=== PATIENT | female | born 1990 | race Caucasian/White ===

== ENCOUNTER → 2020-07-01 | Outpatient (CLI) | payer OTHER ==
[2020-07-01 11:19] LABS: Basophils # (A) 0.02 X 10*3/uL (0.00-0.10); Basophils % (A) 0.3 %; Eosinophils # (A) 0.22 X 10*3/uL (0.04-0.35); Eosinophils % (A) 3.7 %; HCT 39.8 % (37.2-46.3); HGB 12.6 g/dL (12.0-15.0); Lymphocytes # (A) 1.46 X 10*3/uL (0.90-5.00); Lymphocytes % (A) 24.5 %; MCH 28.5 pg (27.0-32.0); MCHC 31.7 g/dL (32.0-37.0); Mean Platelet Volume 9.6 fL (9.5-12.2); Monocytes # (A) 0.44 X 10*3/uL (0.20-1.00); Monocytes % (A) 7.4 %; Neutrophils % (A) 63.8 %; Platelet Count 230 X 10*3/uL (140-440); RBC 4.42 X 10*6/uL (4.10-5.20); RDW 12.5 % (11.5-14.5); WBC 5.96 X 10*3/uL (4.50-10.00)
[2020-07-01 14:04] LABS: African American GFR (CKD) 100.8 (60.0-200.0); Albumin 4.3 g/dL (3.80-4.90); Albumin/Globulin Ratio 1.48 (1.60-3.17); Anion Gap 9.3 mmol/L (4.00-12.00); BUN/Creat Ratio 8.89 Ratio (12.00-20.00); Calcium 9.1 mg/dL (8.7-10.3); Carbon Dioxide 25.7 mmol/L (21.6-31.8); Globulin 2.9 g/dL (1.6-3.3); Potassium 4.2 mmol/L (3.5-5.5); Total Bilirubin 0.4 mg/dL (0.2-1.2); Total Protein 7.2 g/dL (6.2-8.2)
[2020-07-01 14:57] LABS: Ferritin 8.2 ng/mL (10.0-291.0)
== END | disposition home or self-care (01) ==
LOC: LABWHC1 07:10
PROVIDERS: ATTEND Psychiatry & Neurology Neurology
DX: R53.83 Other fatigue (principal)
CPT/HCPCS: 36415; 80053; 82607; 82728; 84207; 84425; 84443; 85025

== ENCOUNTER → 2021-07-06 | Outpatient (CLI) | payer OTHER ==
[2021-07-06 11:31] LABS: Ferritin 65.2 ng/mL (10.0-291.0)
== END | disposition home or self-care (01) ==
LOC: LABWHC1 07:41
PROVIDERS: ATTEND Psychiatry & Neurology Neurology
DX: Z51.81 Encounter for therapeutic drug level monitoring (principal); Z79.899 Other long term (current) drug therapy
CPT/HCPCS: 36415; 82607; 82728; 83090; 83921

== ENCOUNTER 2022-05-29 03:44 | Outpatient (CLI) | payer OTHER ==
[2022-05-29 07:56] VITALS: BP 124/84; PULSE 92; RESP 16; TEMP 97.7
--- NOTE | 2022-06-07 12:07 | P.MSEPDOC ---
Presenting Problems - Arrival Data Date of Arrival on Unit: 05/29/22 Time of Arrival on Unit: 03:44 Mode of Transport: Ambulatory - Complaint OB-Reason for Admission/Chief Complaint: Possible Onset of Labor Medical History - Information : 1 Para: 0 Term: 0 : 0 Abortions: Spontaneous or Elective: 0 Number of Living Children: 0 - Gestational Age Gestational Age by LACHELLE (wks/days): 39 Weeks and 2 Days - History Comment: RN called Dr. Herr and reported pt. and status, vitals, cervical exam,. negative amnisure, reactive NST, and contraction pattern. Dr. Herr would like the. patient to stay for another hour and check again for cervical change. Review of Systems - Review of Systems Constitutional: No problems Breast: No problems ENT: No problems Cardiovascular: No problems Respiratory: No problems Gastrointestinal: No problems Genitourinary: No problems Musculoskeletal: No problems Neurological: No problems Skin: No problems Vital Signs - Temperature Temperature: 97.7 F Temperature Source: Temporal Artery Scan - Pulse Pulse Oximetery Pulse Rate: 92 Pulse Assessment Method: Pulse Oximetry - Respirations Respiratory Rate: 16 Oxygen Delivery Method: Room Air O2 Sat by Pulse Oximetry: 98 - Blood Pressure Right Arm Blood Pressure: 124/84 Blood Pressure Mean: 97 Blood Pressure Source: Automatic Cuff Medical Screen Scoring - Cervical Exam Dilation (cm): 1.5 Effacement (%): 70 Station: -1 Membranes: Intact - Uterine Contractions Frequency From (mins): 7 Frequency To (mins): 9 Intensity: Mild Resting: Soft to palpation - Assessment - Baby A Baseline FHR: 132 Heart Rate - NICHD Category: Category I (Normal) NST: Reactive Physician Notification - Physician Notified Physician Notified Date: 05/29/22 Physician Notified Time: 05:11 Physician: DR. Herr New Order Received: Yes Maternal Triage Index - Non-Urgent/Priority 4 Non-Urgent Priority 4: Yes Criteria Met for Priority 4: RN called Dr. Herr and reported pt. and status, vitals, cervical exam,. negative amnisure, reactive NST, and contraction pattern. Dr. Herr would like the. patient to stay for another hour and check again for cervical change. Disposition - Disposition OB Disposition: Admit, LDRP Suite I agree with the RN Medical Screening Exam: Yes Case reviewed; plan agreed upon as documented in EMR&OBIX.: Yes Diagnosis: LOUSE-BORNE TYPHUS
== END 2022-05-29 06:15 ==
LOC: FBPOP 03:44
PROVIDERS: ATTEND Obstetrics & Gynecology
DX: O99.713 Diseases of the skin and subcutaneous tissue complicating pregnancy, third trimester (principal); A00-B99 Certain infectious and parasitic diseases; Z3A.39 39 weeks gestation of pregnancy; Z88.1 Allergy status to other antibiotic agents
CPT/HCPCS: 59025; 84112; 99213

== ENCOUNTER 2022-05-29 06:35 | Inpatient (IN) | payer OTHER ==
[2022-05-29] MEDS ORDERED: TRANEXAMIC ACID IN NACL,ISO-OS 1,000 MG in EMPTY BAG 1 BAG IV PRN (07:01)
[2022-05-29] MEDS ORDERED: OXYTOCIN 10 UNIT/ML 1 ML VIAL IM PRN (07:01)
[2022-05-29] MEDS ORDERED: TERBUTALINE 1 MG/ML VIAL SQ PRN (07:01)
[2022-05-29] MEDS ORDERED: CARBOPROST TROMETHAMINE 250 MCG/ML 1 ML AMP IM PRN (07:01)
[2022-05-29] MEDS ORDERED: miSOPROStoL 200 MCG TAB PO PRN (07:01)
[2022-05-29] MEDS ORDERED: LIDOCAINE 0.5% (PF) 5 MG/ML (50 ML SDV) SQ PRN (07:01)
[2022-05-29] MEDS ORDERED: METHYLERGONOVINE 0.2 MG/ML 1 ML AMP IM PRN (07:01)
[2022-05-29] MEDS ORDERED: OXYTOCIN 30 UNITS/500 ML NS 30 UNIT in SALINE 1 500ML.BAG IV SCH (07:15)
[2022-05-29 07:24] LABS: Basophils % (A) 0 %; Eosinophils # (A) 0.1 k/uL (0-0.7); Eosinophils % (A) 1 %; HCT 36.3 % (34.0-46.0); HGB 12.9 gm/dL (11.4-16.0); Lymphocytes # (A) 1.7 k/uL (1.0-4.8); Lymphocytes % (A) 20 %; MCH 31.7 pg (25.0-35.0); MCHC 35.6 g/dL (31.0-37.0); MCV 89.2 fL (80.0-100.0); Mean Platelet Volume 8.5; Monocytes # (A) 0.4 k/uL (0-1.0); Monocytes % (A) 4 %; Neutrophils # (A) 6.2 k/uL (1.3-7.7); Neutrophils % (A) 74 %; Platelet Count 197 k/uL (150-450); RBC 4.07 m/uL (3.80-5.40); RDW 13.8 % (11.5-15.5); WBC 8.4 k/uL (3.8-10.6)
--- NOTE | 2022-05-29 08:09 | P.HPOB ---
History of Present Illness H&P Date: 05/29/22 Chief Complaint: Strong, regular uterine contractions This is a 32-year-old female 1 para 0 EDC 06/03/2022 at 39-2/7 weeks' gestation. Patient presents from home with strong uterine contractions every 6 minutes, taking her breath away. She denies fluid leakage or vaginal bleeding. She was monitored in the triage area for 2 hours and made cervical change, therefore admitted. Fetus is been active throughout the . Current medications vitamins daily, Zyrtec as needed, omeprazole as needed, baby aspirin daily. Past surgical history tonsillectomy, endoscopy. Past medical history significant for asthma, hiatal hernia, migraine headaches. Social history patient is , her is present and involved. She works for [employer]. She denies tobacco alcohol or drug use. Family history significant for migraine headaches, depression, epilepsy, hypercholesterolemia, ventricular tachycardia, anxiety. history significant for blood type O positive, rubella status nonimmune. VDRL testing, hepatitis B surface antigen, HIV testing, urine culture, group B strep cultures all negative. One-hour Glucola 90. On exam patient is 5 foot 6 inches, 174 pounds, vital signs are stable and patient is afebrile. The general physical exam is within normal limits. Cervix is 3 cm dilated, 70% effaced, -2 station, vertex presentation. Artificial amniorrhexis reveals clear fluid. Contractions are occurring approximately 6 minutes apart, patient rates them on a scale of 6 out of 10. heart rate is consistent with reactive NST. Impression: 39-2/7 weeks intrauterine , early active labor. All signs reassuring. Plan: We will use oxytocin augmentation as needed per protocol. Analgesic options reviewed. Close maternal and surveillance. Anticipating normal spontaneous vaginal delivery. Review of Systems Constitutional: Reports as per HPI Past Medical History Past Medical History: Asthma Additional Past Medical History / Comment(s): Hiatal Hernia, Migraines, asthma History of Any Multi-Drug Resistant Organisms: None Reported Additional Past Surgical History / Comment(s): Endoscopy 2016 Past Anesthesia/Blood Transfusion Reactions: No Reported Reaction Past Psychological History: No Psychological Hx Reported Smoking Status: Never smoker Medications and Allergies Home Medications Medication Instructions Recorded Confirmed Type Aspirin 81 mg PO DAILY 04/18/22 05/29/22 History Vit No.179/Iron/Folic 1 each PO DAILY 04/18/22 05/29/22 History [ Tablet] Allergies Allergy/AdvReac Type Severity Reaction Status Date / Time cefcil Allergy Intermediate Rash/Hives Uncoded 05/29/22 03:47 Exam Vital Signs Temp Pulse Resp BP Pulse Ox 05/29/22 06:45 97.9 F 97 16 130/79 98 Intake and Output 05/28/22 05/29/22 05/29/22 22:59 06:59 14:59 Other: Weight 78.925 kg see dictation under HPI payton Results Result Diagrams: 05/29/22 06:55 Assessment and Plan Assessment: Turning 9-2/7 weeks intrauterine , early spontaneous labor. All signs reassuring. Plan: Continue close maternal and surveillance. Oxytocin augmentation as needed. Analgesic options reviewed. Anticipate normal spontaneous vaginal delivery. Time with Patient: Less than 30
[2022-05-29] MEDS: LACTATED RINGERS 1,000 ML IV SCH ×2 (09:58→11:10)
[2022-05-29] MEDS ORDERED: diphenhydrAMINE 50 MG CAP PO PRN (13:36)
[2022-05-29] MEDS ORDERED: LANOLIN CREAM 5 GM TUBE TOPICAL PRN (13:36)
[2022-05-29] MEDS ORDERED: diphenhydrAMINE 50 MG/ML 1 ML VIAL IVP PRN ×2 (13:36)
[2022-05-29] MEDS ORDERED: diphenhydrAMINE 25 MG CAP PO PRN (13:36)
[2022-05-29] MEDS ORDERED: SIMETHICONE 80 MG CHEWABLE PO PRN (13:36)
[2022-05-29] MEDS ORDERED: HYDROCORTISONE 2.5% RECTAL CREAM 30 GM TUBE RECTAL PRN (13:36)
[2022-05-29] MEDS ORDERED: BENZOCAINE/MENTHOL SPRAY 1 GM/SPRAY AEROSOL TOPICAL PRN (13:36)
[2022-05-29] MEDS ORDERED: ZOLPIDEM 5 MG TAB PO PRN (13:36)
--- NOTE | 2022-05-29 13:36 | P.PROBDLV ---
Vaginal Delivery Note - . Vaginal Delivery Note: This is a 32-year-old female 1 para 0 EDC 06/03/2022 who presented at 39-2/7 weeks earlier this morning with strong consistent uterine contractions in early labor. remarkable for negative strep cultures, blood type O positive, rubella status nonimmune. Please see dictated history and physical for details.Artificial amniorrhexis revealed clear fluid. Epidural was placed per her request. Oxytocin was titrated as appropriate. Patient became compl etely dilated at 1256 hours and began the second stage of labor at that time. Perineal body was prepped and draped in the usual sterile fashion. With excellent maternal expulsive efforts the 's head delivered occiput anterior and she restituted accordingly. There was no nuchal cord noted. The right or anterior shoulder was delivered from underneath the pubic symphysis at which time the oropharynx, nasopharynx, and external nares were all bulb suctioned. Patient was officially delivered of a liveborn female at 1317 hrs. Umbilical cord was doubly clamped and ligated, she was handed to waiting nurses for evaluation where scores of 9 and 9 at one and 5 minutes respectively were given. The placenta delivered spontaneously, it was inspected and noted to be intact with trivascular cord at 1320 hrs. Uterus is then massaged. Careful inspection of the cervix, vagina, perineum, periurethral, and perirectal areas revealed a small midline first-degree perineal laceration repaired in the usual fashion using 4-0 repeat. Total estimate a blood loss 250 mL's. weighs 8 pounds 2.5 ounces or 3700 g. Patient is allowed to begin the bonding experience in the LDR.
[2022-05-29] MEDS ORDERED: MEASLES-MUMPS-RUBELLA VACC/PF 12,500 UNIT/0.5 ML VIAL SQ ONE (19:54)
[2022-05-29] MEDS ORDERED: ACETAMINOPHEN TAB 325 MG TAB PO PRN (19:56)
[2022-05-29] MEDS: SENNOSIDES-DOCUSATE SODIUM 1 EACH TAB PO SCH (20:05)
[2022-05-30 06:11] LABS: Basophils % (A) 0 %; Eosinophils % (A) 0 %; HCT 30.7 % (34.0-46.0); HGB 10.5 gm/dL (11.4-16.0); Lymphocytes # (A) 1.8 k/uL (1.0-4.8); Lymphocytes % (A) 16 %; MCH 31.5 pg (25.0-35.0); MCHC 34.3 g/dL (31.0-37.0); MCV 91.9 fL (80.0-100.0); Mean Platelet Volume 8.3; Monocytes # (A) 0.5 k/uL (0-1.0); Monocytes % (A) 4 %; Neutrophils # (A) 8.3 k/uL (1.3-7.7); Neutrophils % (A) 78 %; Platelet Count 156 k/uL (150-450); RBC 3.34 m/uL (3.80-5.40); RDW 13.4 % (11.5-15.5); WBC 10.7 k/uL (3.8-10.6)
--- NOTE | 2022-05-30 07:41 | P.DS ---
Providers Date of admission: 05/29/22 06:35 Expected date of discharge: 05/30/22 Attending physician: Mikala Herr Primary care physician: Stated None Hospital Course: This is a 32-year-old female 1 para 0 EDC 06/03/2022 at 39-2/7 weeks' gestation who presented from home in early spontaneous labor. Blood type is O+, group B strep cultures negative, rubella status nonimmune. Please see dictated history and physical for details. Clear fluid was noted. Oxytocin was started and titrated. Epidural was placed per her request. She went on to deliver vaginally a liveborn female infant with scores of 9 and 9 at one and 5 minutes respectively. There was a small first-degree perineal laceration easily repaired. Weight 8 pounds 2.5 ounces or 3700 g. Please see dictated delivery note for details. This morning the patient and her are both doing well. Patient is voiding, ambulating, passing flatus without difficulty. Vital signs are stable and she is afebrile. Fundus is firm and in the midline, symmetric and 18 week size. Extremities are negative for edema. Breast-feeding is going well. Patient has a breast pump and is utilizing it efficiently. She has no difficulties to report. She is judged to be in very good condition for discharge home. Patient will follow-up with me in the office in 6 weeks. I have reminded her no intercourse, tampons or douching. She will use kchx-mpn-[id number] Advil or Aleve, or Motrin as needed for pain. She will call with any fevers shakes or chills, foul smelling or copious lochia, large blood clots, any pain not alleviated by [id number]-[id number] products, or indeed with any concerns. will follow-up with golf club head former as per recommendations. We have briefly discussed options for contraception and we will review this further in the office. Assessment: Doing well first post day Patient Condition at Discharge: Good Plan - Discharge Summary Discharge Rx Participant: No New Discharge Prescriptions: No Action Vit No.179/Iron/Folic [ Tablet] 1 each PO DAILY Aspirin 81 mg PO DAILY Discharge Medication List Aspirin 81 mg PO DAILY 04/18/22 [History] Vit No.179/Iron/Folic [ Tablet] 1 each PO DAILY 03/07/23 [History] Follow up Appointment(s)/Referral(s): Mikala Herr MD [STAFF PHYSICIAN] - 6 Weeks Discharge Disposition: HOME SELF-CARE
[2022-05-30 12:05] VITALS: RESP 16
[2022-05-30 16:07] VITALS: BP 102/66; PULSE 102; TEMP 98.2
[2022-05-30] MEDS: SENNOSIDES-DOCUSATE SODIUM 1 EACH TAB PO SCH (16:07)
== END 2022-05-30 18:15 | disposition home or self-care (01) | DRG 806 ==
LOC: 4FBP 06:35
PROVIDERS: ADMIT Obstetrics & Gynecology; ATTEND Obstetrics & Gynecology
PROC: 10E0XZZ Delivery of Products of Conception, External Approach (ICD-10-PCS; principal; 2022-05-29)
PROC: 10907ZC Drainage of Amniotic Fluid, Therapeutic from Products of Conception, Via Natural or Artificial Opening (ICD-10-PCS; 2022-05-29)
PROC: 4A0HXCZ Measurement of Products of Conception, Cardiac Rate, External Approach (ICD-10-PCS; 2022-05-29)
PROC: 3E033VJ Introduction of Other Hormone into Peripheral Vein, Percutaneous Approach (ICD-10-PCS; 2022-05-29)
PROC: 0HQ9XZZ Repair Perineum Skin, External Approach (ICD-10-PCS; 2022-05-29)
DX: O70.0 First degree perineal laceration during delivery (principal); O99.354 Diseases of the nervous system complicating childbirth; Z37.0 Single live birth; G43.909 Migraine, unspecified, not intractable, without status migrainosus; J45.909 Unspecified asthma, uncomplicated; O99.52 Diseases of the respiratory system complicating childbirth; Z87.19 Personal history of other diseases of the digestive system; Z3A.39 39 weeks gestation of pregnancy; Z79.82 Long term (current) use of aspirin; Z88.8 Allergy status to other drugs, medicaments and biological substances
CPT/HCPCS: 85025; 86850; 86900; 86901; 90707

== ENCOUNTER → 2022-10-25 | Outpatient (CLI) | payer OTHER ==
--- NOTE | 2022-10-25 12:00 | MR ---
EXAMINATION TYPE: MR brain wo/w con DATE OF EXAM: 10/25/2022 COMPARISON: None HISTORY: R UE Apraxia/agnosia w/ twitching, r/o mass TECHNIQUE: Multiplanar, multisequence images of the brain and brainstem is performed without and with IV contras t, utilizing 7 mL intravenous Gadavist . FINDINGS: Diffusion weighted images demonstrate no evidence of a recent infarct or other diffusion ab normality. There is no extra-axial fluid collection or significant white matter signal abnormality. The ventricular system and cisternal spaces are normal in size and appearance. The brain volume is age appropriate. Midline structures demonstrate normal morphology. Cerebellar tonsils are low-lying at the level the f oramen magnum. Post contrast images demonstrate a tiny venous angioma right cerebellum. The dural ve nous sinuses appear patent. Mild changes of chronic sinusitis. Orbits are symmetric.. IMPRESSION: 1. No acute intracranial process. 2. Incidental note made of a small right cerebellar hemispheric venous angioma. 3. Low-lying cerebellar tonsils at the level of the foramen magnum.
--- NOTE | 2022-10-25 17:15 | EEG ---
ELECTROENCEPHALOGRAM REPORT CLINICAL HISTORY: This is a 32-year-old woman with reported headache and episode of right hand weakness. The video EEG is obtained to evaluate for seizure and epileptiform activity. RELEVANT MEDICATIONS: The patient is not on any antiepileptic drugs. EEG TYPE: A routine 21-channel EEG with video using the 10/20 electrode placement system is used. DESCRIPTION: Wakefulness is only obtained. During awake state, the posterior-dominant rhythm consists of ujb-zq-esgyyjen voltage of 10.5 to 11 Hz activity, that is well modulated and well sustained. There is no physiological stage II sleep architecture. There is no focal slowing. INTERICTAL AND ICTAL: There is no clear epileptiform discharge, and there is no seizure during the study. There are 2 questionable episodes during the study, where I felt the patient had questionable sharp and slow wave over the left temporal, but was not clear for seizure as well as questionable occipital, right and left. Again, those were not clear for seizure. I felt they are seen very rare, and again, I was not convinced there are clear epileptiform discharge. ACTIVATION PROCEDURE: Photic stimulation did not evoke a posterior driving response. There is no abnormality during the photic stimulation. Hyperventilation is not performed. CLINICAL INTERPRETATION: This is a normal routine EEG. The background is normal. There is no focal slowing or seizure during the study. There are questionable rare epileptiform discharges, but I did not feel there are clear epileptiform discharge. I recommend a prolonged EEG for further characterization. Clinical correlation is recommended. JOSE JUAN / SAJAN: [id number] /
== END ==
LOC: NEUROMAIN 07:51
PROVIDERS: ATTEND Psychiatry & Neurology Neurology
DX: R48.2 Apraxia (principal); Q28.3 Other malformations of cerebral vessels; Z88.8 Allergy status to other drugs, medicaments and biological substances
CPT/HCPCS: 95816; 70553; A9585

== ENCOUNTER 2023-01-03 16:45 | Emergency (ER) | payer OTHER ==
[2023-01-03] MEDS ORDERED: SODIUM CHLORIDE 0.9% 1,000 ML IV STA (16:55)
[2023-01-03] MEDS ORDERED: METOCLOPRAMIDE 5 MG/ML 2 ML VIAL IVP STA (16:56)
[2023-01-03] MEDS ORDERED: diphenhydrAMINE 50 MG/ML 1 ML VIAL IVP STA (16:56)
[2023-01-03 17:02] VITALS: BP 116/76; PULSE 100; RESP 20; TEMP 98.3
[2023-01-03 17:45] LABS: Basophils % (A) 1 %; Eosinophils # (A) 0.1 k/uL (0-0.7); Eosinophils % (A) 2 %; HCT 42.9 % (34.0-46.0); HGB 14.4 gm/dL (11.4-16.0); Lymphocytes # (A) 1.5 k/uL (1.0-4.8); Lymphocytes % (A) 27 %; MCH 29.7 pg (25.0-35.0); MCHC 33.5 g/dL (31.0-37.0); MCV 88.4 fL (80.0-100.0); Monocytes # (A) 0.2 k/uL (0-1.0); Monocytes % (A) 3 %; Neutrophils # (A) 3.5 k/uL (1.3-7.7); Neutrophils % (A) 66 %; Platelet Count 279 k/uL (150-450); RBC 4.85 m/uL (3.80-5.40); RDW 11.8 % (11.5-15.5); WBC 5.3 k/uL (3.8-10.6)
--- NOTE | 2023-01-03 17:46 | CT ---
EXAMINATION TYPE: CT brain wo con DATE OF EXAM: 01/03/2023 COMPARISON: None HISTORY: 32-year-old female Headache with aura and loss vision to left eye, pt now has vision to left eye perrla. TECHNIQUE: Examination was done in axial plane without intravenous contrast. Coronal and sagittal r econstructions performed. CT DLP: 1169.4 mGycm Automated exposure control for dose reduction was used. FINDINGS: Prominent skull base artifacts. Allowing for this limitation, there is no evidence of acute intracra nial hemorrhage, acute ischemic changes, mass, mass-effect, or extra-axial fluid collection. There i s no effacement of cerebral sulci or basal subarachnoid cisterns. There is no hydrocephalus. There is no midline shift. Romano-white matter distinction is preserved. Paranasal sinuses and mastoid air cells are well pneumatized. Orbits and globes are intact. IMPRESSION: No acute intracranial abnormality seen.
[2023-01-03 18:10] LABS: ALT 17 U/L (4-34); AST 26 U/L (14-36); African American GFR (CKD) >90 (>60 ml/min/1.73 sqM); Albumin 4.7 g/dL (3.5-5.0); Alkaline Phosphatase 64 U/L (38-126); Anion Gap 11 mmol/L; Blood Urea Nitrogen 10 mg/dL (7-17); Calcium 9.8 mg/dL (8.4-10.2); Carbon Dioxide 23 mmol/L (22-30); Chloride 104 mmol/L (98-107); Glucose 119 mg/dL (74-99); Non-African American GFR(CKD) >90 (>60 ml/min/1.73 sqM); Potassium 4.8 mmol/L (3.5-5.1); Sodium 138 mmol/L (137-145); Total Bilirubin 0.7 mg/dL (0.2-1.3); Total Protein 8.3 g/dL (6.3-8.2)
--- NOTE | 2023-01-03 18:23 | ED ---
Headache HPI - General Chief Complaint: Headache Stated Complaint: migraine Source: RN notes reviewed Mode of arrival: wheelchair Limitations: no limitations - History of Present Illness Initial Comments: Patient with a history of migraines, headache started at about 10 AM. Started with an aura involving the left eye. Patient states she lost vision to the lower left portion of the eye. This resolved, headache then started. Patient took her triptan medication at home twice. Sent in by her PMD. Patient does have a history of migraine headaches. No history of preceding aura. This headache started at 10 AM. Visual disturbance has resolved. Patient denying any fever or chills. No neck stiffness. Headache is throbbing/aching located behind the left eye going across the forehead. Patient did have some tingling in the toes of both feet. However, no focal weakness. No gait disturbance. No vertigo. No current visual disturbance. No slurred speech. No facial drooping. Denying chance of . Patient has a neurologist out of Dr. Margy Lamar - Related Data Home Medications Medication Instructions Recorded Confirmed Aspirin 81 mg PO DAILY 04/18/22 05/29/22 Vit No.179/Iron/Folic 1 each PO DAILY 04/18/22 05/29/22 [ Tablet] Allergies Allergy/AdvReac Type Severity Reaction Status Date / Time cefcil Allergy Intermediate Rash/Hives Uncoded 05/29/22 03:47 Review of Systems ROS Statement: Those systems with pertinent positive or pertinent negative responses have been documented in the HPI. ROS Other: All systems not noted in ROS Statement are negative. Past Medical History Past Medical History: Asthma Additional Past Medical History / Comment(s): Hiatal Hernia, Migraines, asthma History of Any Multi-Drug Resistant Organisms: None Reported Additional Past Surgical History / Comment(s): Endoscopy 2016 Past Anesthesia/Blood Transfusion Reactions: No Reported Reaction Past Psychological History: No Psychological Hx Reported Smoking Status: Never smoker General Exam Limitations: no limitations General appearance: alert, in no apparent distress, in distress Head exam: Present: atraumatic, normocephalic, normal inspection Eye exam: Present: normal appearance, PERRL, EOMI. Absent: scleral icterus, conjunctival injection, periorbital swelling ENT exam: Present: normal exam, normal oropharynx, mucous membranes moist, TM's normal bilaterally, normal external ear exam. Absent: mucous membranes dry Neck exam: Present: normal inspection. Absent: tenderness, meningismus, lymphadenopathy Respiratory exam: Present: normal lung sounds bilaterally. Absent: respiratory distress, wheezes, rales, rhonchi, stridor, chest wall tenderness, accessory muscle use Cardiovascular Exam: Present: regular rate, normal rhythm, normal heart sounds. Absent: systolic murmur, diastolic murmur, rubs, gallop, clicks GI/Abdominal exam: Present: soft, normal bowel sounds. Absent: distended, tenderness, guarding, rebound, rigid Extremities exam: Present: normal inspection, full ROM, normal capillary refill. Absent: tenderness, pedal edema, joint swelling, calf tenderness Back exam: Present: normal inspection Neurological exam: Present: alert, oriented X3, CN II-XII intact, normal gait, reflexes normal. Absent: altered, motor sensory deficit Expanded Cranial nerves: EOM's Intact: Normal, Gag Reflex: Normal, Tongue Deviation: Normal, Nystagmus: Normal, Facial Sensation: Normal, Facial Palsy with Forehead Movement: Normal, Facial Palsy without Forehead Movement: Normal Cerebellar function: Finger to Nose: Normal, Heel to Man: Normal Motor strength exam: RUE: 5, LUE: 5, RLE: 5, LLE: 5 Eye Response: (4) open spontaneously Motor Response: (6) obeys commands Verbal Response: (5) oriented Psychiatric exam: Present: normal affect, normal mood Skin exam: Present: warm, dry, intact, normal color. Absent: rash Course Vital Signs 01/03/23 16:51 Temperature 98.3 F Pulse Rate 100 Respiratory 20 Rate Blood Pressure 116/76 O2 Sat by Pulse 99 Oximetry - Reevaluation(s) Reevaluation #1: 01/03/23 18:40 Patient is now Back to the room. Received any medication yet. Independent interpretation of the computed tomography scan of the brain by me shows no evidence of acute pathology. Again, this was indicated as this was a change from the patient's normal migraine. Reevaluation #2: 01/03/23 20:29 She reevaluated prior to discharge, headache. Patient feels much better. Feels well enough to go home. I discussed treatments, possible other etiologies. She was discussed, after I discussed, this was deferred by the patient. We'll have the patient follow-up with her neurologist, Dr. Ji. This patient was seen and assessed by the ED attending physician, Dr. Meneses. The case was discussed in detail with ED attending physician. Presentation, findings, treatment plan discussed in detail. Medical Decision Making - Medical Decision Making PHYSICAL EXAM: Appearance: Alert, awake, in distress, tearful Head: Atraumatic, normocephalic, normal inspection Eyes: Normal appearance, no sclera icterus, no conjunctival injection, no periorbital swelling, Ears: Normal inspection , normal external ear exam bilaterally Face: normal inspection, face is symmetrical Chest: Normal inspection, symmetrical chest wall rise, no rashes Neurological: Alert and Oriented, follows commands, keeps eye contact, face is symmetrical Extremity: No tenderness to palpation. Distal CSMs are intact 4. Psychiatric: normal mood, normal affect Skin: warm, dry, intact, normal color Signed by Jay Aviles PA-C Was pt. sent in by a medical professional or institution? @ -PCP, Dr. Agosto Did you speak to anyone other than the patient for history? @ -Spouse Did you review nursing and triage notes? @ -agree Were old charts reviewed? @ -no Differential Diagnosis? @ -Differential diagnosis includes but not limited to: Migraine headache, intracranial hemorrhage, very migraine, tension headache, does not appear to be consistent with infectious process. Does not appear to be consistent with a neurological issue. Patient has had neurological baseline. A unlikely given the patient's age and history of migraine headaches although the patient has not previously had an aura. EKG interpreted by me (3pts min.)? @ -[none] X-rays interpreted by me (1pt min.)? @ -[none] CT interpreted by me (1pt min.)? @ -Independent interpretation of the computed tomography scan by me shows no evidence of acute pathology. Reviewed radiology interpretation U/S interpreted by me (1pt. min.)? @ -[none] What testing was considered but not performed? (CT, X-rays, U/S, labs)? Why? @EKG was considered but not done What meds were considered but not given? Why? @ -I did consider Depakote, although the patient had adequate relief with the headache cocktail plus magnesium. Did you discuss the management of the patient with other professionals? @ -no Did you reconcile home meds? @ -[none] Was smoking cessation discussed for >3mins.? @ -[none] Was critical care preformed (if so, how long)? @ -[none] Were there social determinants of health that impacted care today? How? (Homelessness, low income, unemployed, alcoholism, drug addiction, transportation, low edu. Level, literacy, decrease access to med. care, group home, rehab)? @ -none Was there de-escalation of care discussed even if they declined? (Discuss DNR or withdrawal of care, Hospice)? @ -[Discuss DNR or withdrawal of care, Hospice?] What co-morbidities impacted this encounter? (DM, HTN, Smoking, COPD, CAD, Cancer, CVA, Hep., AIDS, mental health diagnosis, sleep apnea, morbid obesity)? @ -none Was patient admitted / discharged? @ -Discharged, improved, stable Undiagnosed new problem with uncertain prognosis? @ -[none] Drug Therapy requiring intensive monitoring for toxicity (Heparin, Nitro, Insulin, Cardizem)? @ -[none] Were any procedures done? @ -[none] Diagnosis/symptom? @ -Migraine headache with aura Acute, or Chronic, or Acute on Chronic? @ -Acute, recurrent Uncomplicated (without systemic symptoms) or Complicated (systemic symptoms)? @ -Uncomplicated Side effects of treatment? @ -[none] Exacerbation, Progression, or Severe Exacerbation] @ -Exacerbation Poses a threat to life or bodily function? @ -Unlikely Patient was told to return to the ER for any signs or symptoms worsen. Told to return immediately if any other problems arise. All questions answered. Treatment plan discussed. Patient in agreement Every effort has been made to ensure accuracy of this dictation. However, due to the limitations of electronic medical records and dictation devices, errors in charting still occur. - Lab Data Result diagrams: 01/03/23 16:55 01/03/23 16:55 Lab Results 01/03/23 01/03/23 Range/Units 16:55 16:55 WBC 5.3 (3.8-10.6) k/uL RBC 4.85 (3.80-5.40) m/uL Hgb 14.4 (11.4-16.0) gm/dL Hct 42.9 (34.0-46.0) % MCV 88.4 (80.0-100.0) fL MCH 29.7 (25.0-35.0) pg MCHC 33.5 (31.0-37.0) g/dL RDW 11.8 (11.5-15.5) % Plt Count 279 (150-450) k/uL MPV 7.0 Neutrophils % 66 % Lymphocytes % 27 % Monocytes % 3 % Eosinophils % 2 % Basophils % 1 % Neutrophils # 3.5 (1.3-7.7) k/uL Lymphocytes # 1.5 (1.0-4.8) k/uL Monocytes # 0.2 (0-1.0) k/uL Eosinophils # 0.1 (0-0.7) k/uL Basophils # 0.0 (0-0.2) k/uL Sodium 138 (137-145) mmol/L Potassium 4.8 (3.5-5.1) mmol/L Chloride 104 (98-107) mmol/L Carbon Dioxide 23 (22-30) mmol/L Anion Gap 11 mmol/L BUN 10 (7-17) mg/dL Creatinine 0.76 (0.52-1.04) mg/dL Est GFR (CKD-EPI)AfAm >90 (>60 ml/min/1.73 sqM) Est GFR (CKD-EPI)NonAf >90 (>60 ml/min/1.73 sqM) Glucose 119 H (74-99) mg/dL Calcium 9.8 (8.4-10.2) mg/dL Total Bilirubin 0.7 (0.2-1.3) mg/dL AST 26 (14-36) U/L ALT 17 (4-34) U/L Alkaline Phosphatase 64 (38-126) U/L Total Protein 8.3 H (6.3-8.2) g/dL Albumin 4.7 (3.5-5.0) g/dL HCG, Quant <2.4 mIU/mL Disposition Clinical Impression: Migraine headache with aura Disposition: HOME SELF-CARE Condition: Good Instructions (If sedation given, give patient instructions): Acute Headache (ED) Additional Instructions: Make a follow-up appointment with your neurologist, Dr. Ji. Call Sunday morning. Follow-up with your regular physician as directed. Return to the ER immediately if any symptoms worsen, new symptoms arise, or any other problems develop. Is patient prescribed a controlled substance at d/c from ED?: No Referrals: Anabelle Agosto DO [Primary Care Provider] - 1-2 days Time of Disposition: 20:30
[2023-01-03 18:25] LABS: HCG,Quantitative Serum <2.4 mIU/mL
[2023-01-03] MEDS ORDERED: KETOROLAC 15 MG/ML 1 ML VIAL IVP STA (18:40)
[2023-01-03] MEDS ORDERED: DEXAMETHASONE SOD PHOSPHATE 10 MG/ML 1 ML VIAL IVP STA (19:31)
[2023-01-03] MEDS ORDERED: MAGNESIUM SULFATE-D5W PMX 1 GM in DEXTROSE/WATER 1 100ML.BAG IVPB ONE (19:31)
== END 2023-01-03 21:34 | disposition home or self-care (01) ==
LOC: EC 16:45
DX: G43.109 Migraine with aura, not intractable, without status migrainosus (principal); J45.909 Unspecified asthma, uncomplicated; Z79.82 Long term (current) use of aspirin; Z88.8 Allergy status to other drugs, medicaments and biological substances
CPT/HCPCS: 36415; 80053; 85025; 84702; 70450; 99284; 96365; 96375 ×4; 96361; J1200; J1100; J2765; J3475; J1885